=== PATIENT | female | born 1965 | race American Indian/Alaskan Native ===

== ENCOUNTER 2021-08-30 17:32 | Emergency (ER) | payer BC ==
[2021-08-30 18:02] VITALS: BP 147/99
--- NOTE | 2021-08-30 18:25 | Emergency Department Report ---
ED Head Trauma HPI - General Chief complaint: Headache Stated complaint: HEADACHE/INJURY Time Seen by Provider: 08/30/21 18:05 Source: patient Mode of arrival: Ambulatory Limitations: No Limitations - History of Present Illness Initial comments: 56-year-old female presents to the emergency department complaining of a headache secondary to an injury sustained 2 days ago. The patient states that she was bending over in a closet and a large ceramic heater fell out of the upper part of the closet and struck her on the right side of her head. There was no loss of consciousness. She denies any swelling or laceration. She immediately had a headache and has had a persistent headache since then. She has not taken anything for the headache. She denies any associated visual changes, tinnitus, nausea, dizziness, near-syncope or syncope. She has not anticoagulated. She denies any history of head injuries. She called her doctor's office today and was advised to come in for evaluation and possible CAT scan MD Complaint: head injury, head pain Onset/Timin (days) -: Sudden Mechanism of Injury: other Location: temporal Loss of Consciousness: no Previous Trauma to this Area: No Place: home Radiation: none Severity: moderate Severity scale (0 -10): 5 Quality: dull Consistency: constant Provoking factors: none known Other Injuries: none Associated Symptoms: denies other symptoms - Related Data Allergies/Adverse reactions: Allergies Allergy/AdvReac Type Severity Reaction Status Date / Time naproxen [From Naprosyn] AdvReac Unknown Verified 08/30/21 18:03 sulfasalazine AdvReac Unknown Verified 08/30/21 18:03 ED Review of Systems ROS: Stated complaint: HEADACHE/INJURY Other details as noted in HPI Comment: All other systems reviewed and negative Neurological: as per HPI, headache ED Past Medical Hx - Past Medical History Hx Arthritis: Yes (RA) ED Physical Exam - General Limitations: No Limitations General appearance: alert, in no apparent distress - Head Head exam: Present: atraumatic, normocephalic, normal inspection - Expanded Head Exam Expanded Head exam: Absent: laceration, abrasion, contusion, hematoma, racoon eyes, aranda's sign, CSF rhinorrhea, CSF otorrhea - Eye Eye exam: Present: normal appearance - ENT ENT exam: Present: mucous membranes moist, TM's normal bilaterally - Neck Neck exam: Present: normal inspection - Respiratory Respiratory exam: Present: normal lung sounds bilaterally. Absent: respiratory distress - Cardiovascular Cardiovascular Exam: Present: regular rate, normal rhythm. Absent: systolic murmur, diastolic murmur, rubs, gallop - GI/Abdominal GI/Abdominal exam: Present: soft, normal bowel sounds - Extremities Exam Extremities exam: Present: normal inspection - Back Exam Back exam: Present: normal inspection - Neurological Exam Neurological exam: Present: alert, oriented X3, CN II-XII intact, motor sensory deficit, reflexes normal - Psychiatric Psychiatric exam: Present: normal affect, normal mood - Skin Skin exam: Present: warm, dry, intact, normal color. Absent: rash ED Course Vital Signs 08/30/21 17:59 Temperature 98.4 F Pulse Rate 76 Respiratory 16 Rate Blood Pressure 147/99 [Left] O2 Sat by Pulse 100 Oximetry - Medical Decision Making I discussed the pros and cons of imaging with this injury. According to the [place] head CT rules, she does not need neuroimaging. She is now better than 48 hours post injury. She has not taken anything for the pain. I have encouraged her to take some Tylenol or ibuprofen for the pain. She agrees to no CAT scan. I will send her home with head injury precautions. Critical care attestation.: If time is entered above; I have spent that time in minutes in the direct care of this critically ill patient, excluding procedure time. ED Disposition Clinical Impression: Post-concussion headache Disposition: 01 HOME / SELF CARE / HOMELESS Is pt being admited?: No Does the pt Need Aspirin: No Condition: Stable Instructions: Post-Concussion Syndrome, Head Injury, Adult
== END 2021-08-30 18:55 | disposition home or self-care (01) ==
LOC: ED 17:32
DX: G44.309 Post-traumatic headache, unspecified, not intractable (principal); Z88.6 Allergy status to analgesic agent; Z88.2 Allergy status to sulfonamides
CPT/HCPCS: 99282